=== PATIENT | male | born 1955 | race Caucasian/White ===

== ENCOUNTER 2016-12-28 05:14 | Day surgery (SDC) | payer MEDICARE, OTHER ==
[~2016-12-28 05:14] MED LIST: DURA25 TOP; ENDOCET1 TA3 PO; KLONOPIN; MULTIPLE VIT PO; NEUPOGEN IV; PEGASYS180 MCG/M SC; RIBAVIRIN; ULTRAM50 PO; ZANAFLEX 4 MG TA4 MG PO; ZOFRAN8 PO
== END 2016-12-28 08:56 | disposition home or self-care (01) ==
LOC: SDC 05:14
PROVIDERS: Orthopaedic Surgery
PROC: 3E0S33Z Introduction of Anti-inflammatory into Epidural Space, Percutaneous Approach (ICD-10-PCS; 2016-12-28)
PROC: B01BZZZ Fluoroscopy of Spinal Cord (ICD-10-PCS; 2016-12-28)
PROC: 3E0S3BZ Introduction of Anesthetic Agent into Epidural Space, Percutaneous Approach (ICD-10-PCS; principal; 2016-12-28 08:45)
DX: G89.29 Other chronic pain (principal); M54.9 Dorsalgia, unspecified; M54.16 Radiculopathy, lumbar region; M25.561 Pain in right knee; Z88.0 Allergy status to penicillin; Z88.6 Allergy status to analgesic agent; Z79.891 Long term (current) use of opiate analgesic; Z79.899 Other long term (current) drug therapy; Z90.49 Acquired absence of other specified parts of digestive tract; Z86.19 Personal history of other infectious and parasitic diseases; Z98.890 Other specified postprocedural states; Z87.442 Personal history of urinary calculi
CPT/HCPCS: J1040; J2250; J3010; Q9967

== ENCOUNTER 2017-01-11 05:04 | Day surgery (SDC) | payer MEDICARE, OTHER | END 2017-01-11 07:05 | disposition home or self-care (01) | LOC: SDC 05:04 | PROVIDERS: Orthopaedic Surgery | PROC: 3E0S3BZ Introduction of Anesthetic Agent into Epidural Space, Percutaneous Approach (ICD-10-PCS; 2017-01-11) | PROC: 3E0S33Z Introduction of Anti-inflammatory into Epidural Space, Percutaneous Approach (ICD-10-PCS; principal; 2017-01-11 07:00) | DX: M54.16 Radiculopathy, lumbar region (principal); M54.5 Low back pain; M19.90 Unspecified osteoarthritis, unspecified site; M51.36 Other intervertebral disc degeneration, lumbar region; M06.9 Rheumatoid arthritis, unspecified; Z90.49 Acquired absence of other specified parts of digestive tract; Z86.19 Personal history of other infectious and parasitic diseases; Z87.442 Personal history of urinary calculi; Z98.890 Other specified postprocedural states; Z88.0 Allergy status to penicillin; Z88.6 Allergy status to analgesic agent; Z88.8 Allergy status to other drugs, medicaments and biological substances; Z79.899 Other long term (current) drug therapy; Z79.891 Long term (current) use of opiate analgesic | CPT/HCPCS: J1040; J2250; J3010; Q9967 ==